=== PATIENT | male | born 1945 | race Caucasian/White ===

== ENCOUNTER 2022-01-30 15:56 | Observation (INO) | payer OTHER ==
[2022-01-30] MEDS ORDERED: Morphine 2 MG/ML VIAL SLOW IVP PRN (17:56)
[2022-01-30] MEDS ORDERED: Dextrose 50% Abboject 50 ML SYRINGE SLOW IVP PRN (17:56)
[2022-01-30] MEDS ORDERED: Dextrose 5% in Water 1,000 ML IV PRN (17:56)
[2022-01-30] MEDS ORDERED: hydrALAZINE 20 MG/ML VIAL SLOW IVP PRN (17:56)
[2022-01-30] MEDS ORDERED: Ondansetron PF 4 MG/2 ML Vial IVP PRN (17:56)
[2022-01-30] MEDS ORDERED: traMADol HCl 50 MG TAB PO PRN (17:59)
[2022-01-30] MEDS ORDERED: Cyclobenzaprine 10 MG TAB PO PRN (17:59)
[2022-01-30] MEDS ORDERED: Acetaminophen 500 MG TAB PO SCH ×2 (18:00→19:22)
[2022-01-30] MEDS ORDERED: traMADol HCl 50 MG TAB PO SCH (18:00)
[2022-01-30] MEDS: Nicotine 14 MG PATCH TD SCH (18:48)
[2022-01-30] MEDS ORDERED: Acetaminophen/Codeine 30-300mg Tablet PO PRN (19:22)
[2022-01-30] MEDS: Senokot S 8.6-50 MG TAB PO SCH (21:19)
[2022-01-30] MEDS: Ibuprofen 200 MG TAB PO SCH (21:20)
[2022-01-30] MEDS: Gabapentin 100 MG CAP PO SCH (21:20)
[2022-01-30] MEDS: Famotidine 20 MG TAB PO SCH (21:20)
[2022-01-30 22:29] VITALS: BMI 23.1
[2022-01-30 23:28] LABS: SARS-CoV-2 NAA Rapid Test Not Detected (NotDetected)
[2022-01-30] MEDS: Acetaminophen/Codeine 30-300mg Tablet PO SCH (23:53)
[2022-01-30] MEDS: Acetaminophen 325 MG TAB PO SCH (23:53)
[2022-01-31] MEDS: Ibuprofen 200 MG TAB PO SCH ×3 (05:19→22:00)
[2022-01-31] MEDS: Acetaminophen 325 MG TAB PO SCH ×3 (05:20→16:32)
[2022-01-31] MEDS: Acetaminophen/Codeine 30-300mg Tablet PO SCH ×3 (05:20→16:31)
[2022-01-31 06:25] LABS: #Eosinphils 0.1 thou/uL (0.0-0.7); #Lymphocytes 1.9 thou/uL (1.20-3.40); #Monocytes 0.8 thou/uL (0.11-0.59); #Neutrophils 3.6 thou/uL (1.40-6.50); %Basophils 0.5 % (0.0-1.0); %Eosinophils 1.2 % (0.0-10.0); %Lymphocytes 29.2 % (21.0-51.0); %Monocytes 12.2 % (0.0-10.0); %Neutrophils 56.9 % (42.0-75.0); Hemoglobin 13.8 g/dL (14.0-18.0); Mean Corpuscular HGB CONC 33.5 g/dL (32.0-36.0); Mean Corpuscular Hemoglobin 34.2 pg (27.0-31.0); Mean Platelet Volume 6.2 fL (7.4-10.4); Platelet Count 210 thou/uL (130-400); RBC Distribution Width 12.5 % (11.5-14.5); Red Blood Cell (RBC) Count 4.02 mill/uL (4.70-6.10); White Blood Cell (WBC) Count 6.4 thou/uL (4.8-10.8)
[2022-01-31 06:51] LABS: Anion Gap 11 mmol/L (10-20); BUN (Urea Nitrogen) 18 mg/dL (8.4-25.7); Calc. Creatinine Clearance 99 mL/min (70-130); Calcium 8.7 mg/dL (7.8-10.44); Carbon Dioxide 23 mmol/L (23-31); Chloride 109 mmol/L (98-107); Glucose 93 mg/dL (83-110); Magnesium 2.1 mg/dL (1.6-2.6); Phosphorus 3.4 mg/dL (2.3-4.7); Sodium 139 mmol/L (136-145)
[2022-01-31] MEDS: Polyethylene Glycol 3350 17 GM Packet PO SCH ×2 (09:14→09:17)
[2022-01-31] MEDS: Gabapentin 100 MG CAP PO SCH ×3 (09:14→20:38)
[2022-01-31] MEDS: Famotidine 20 MG TAB PO SCH ×2 (09:16→20:38)
[2022-01-31] MEDS: Senokot S 8.6-50 MG TAB PO SCH ×2 (09:16→20:38)
[2022-01-31] MEDS: Nicotine 14 MG PATCH TD SCH (17:27)
[2022-02-01 05:54] LABS: #Basophils 0.1 thou/uL (0.0-0.2); #Eosinphils 0.1 thou/uL (0.0-0.7); #Lymphocytes 2.4 thou/uL (1.20-3.40); #Monocytes 0.8 thou/uL (0.11-0.59); #Neutrophils 4.4 thou/uL (1.40-6.50); %Basophils 0.7 % (0.0-1.0); %Eosinophils 1.3 % (0.0-10.0); %Lymphocytes 30.4 % (21.0-51.0); %Monocytes 10.9 % (0.0-10.0); %Neutrophils 56.8 % (42.0-75.0); Hemoglobin 13.5 g/dL (14.0-18.0); Mean Corpuscular HGB CONC 32.8 g/dL (32.0-36.0); Mean Corpuscular Hemoglobin 33.7 pg (27.0-31.0); Mean Platelet Volume 6.3 fL (7.4-10.4); Platelet Count 227 thou/uL (130-400); RBC Distribution Width 12.5 % (11.5-14.5); Red Blood Cell (RBC) Count 4.01 mill/uL (4.70-6.10); White Blood Cell (WBC) Count 7.7 thou/uL (4.8-10.8)
[2022-02-01 06:14] LABS: Anion Gap 12 mmol/L (10-20); BUN (Urea Nitrogen) 17 mg/dL (8.4-25.7); Calc. Creatinine Clearance 97 mL/min (70-130); Calcium 8.5 mg/dL (7.8-10.44); Carbon Dioxide 21 mmol/L (23-31); Chloride 109 mmol/L (98-107); Glucose 93 mg/dL (83-110); Magnesium 2.1 mg/dL (1.6-2.6); Phosphorus 3.8 mg/dL (2.3-4.7); Sodium 138 mmol/L (136-145)
[2022-02-01] MEDS: Acetaminophen/Codeine 30-300mg Tablet PO SCH ×3 (06:15→11:51)
[2022-02-01] MEDS: Acetaminophen 325 MG TAB PO SCH ×3 (06:15→11:51)
[2022-02-01] MEDS: Ibuprofen 200 MG TAB PO SCH (06:15)
[2022-02-01] MEDS ORDERED: Enoxaparin Sodium 40 MG/0.4 ML SYRINGE SC SCH (09:00)
[2022-02-01] MEDS: Gabapentin 100 MG CAP PO SCH (09:35)
[2022-02-01] MEDS: Polyethylene Glycol 3350 17 GM Packet PO SCH ×2 (09:35→11:16)
[2022-02-01] MEDS: Senokot S 8.6-50 MG TAB PO SCH (09:38)
[2022-02-01] MEDS: Famotidine 20 MG TAB PO SCH (09:38)
[2022-02-01 12:07] VITALS: BP 121/65; TEMP 98.3
== END 2022-02-01 14:45 | disposition home or self-care (01) ==
LOC: SURG A 15:56
PROVIDERS: ADMIT Surgery; ATTEND Surgery
DX: S82.121A Displaced fracture of lateral condyle of right tibia, initial encounter for closed fracture (principal); N40.0 Benign prostatic hyperplasia without lower urinary tract symptoms; E78.5 Hyperlipidemia, unspecified; F17.210 Nicotine dependence, cigarettes, uncomplicated; Z79.82 Long term (current) use of aspirin; Z79.899 Other long term (current) drug therapy; Z20.822 Contact with and (suspected) exposure to COVID-19; V43.52XA Car driver injured in collision with other type car in traffic accident, initial encounter
CPT/HCPCS: 36415; 76377; 80048; 83735; 84100; 85025; 96372; G0378; J1650; U0002